=== PATIENT | female | born 1975 | race Two or more races ===

== ENCOUNTER 2021-07-13 20:07 | Emergency (ER) | payer OTHER ==
[2021-07-13 20:14] VITALS: BP 155/88; PULSE 70; TEMP 98.7; BMI 17.2
== END 2021-07-13 20:34 | disposition home or self-care (01) ==
LOC: FER 20:07
DX: Z48.02 Encounter for removal of sutures (principal)
CPT/HCPCS: 99281-25

== ENCOUNTER 2023-01-17 18:01 | Emergency (ER) | payer OTHER ==
[2023-01-17 18:08] VITALS: RESP 19; TEMP 98.5; BMI 16.2
[2023-01-17 19:46] LABS: BASO % 0.2 % (0-2.0); EOS % 1.1 % (0-4.5); HEMATOCRIT 45.1 % (32.4-45.2); HEMOGLOBIN 14.8 GM/dL (10.7-15.3); MCH 29.3 pg (25.7-33.7); MCHC 32.8 g/dl (32.0-36.0); MEAN CELL VOLUME 89.3 fl (80-96); MEAN PLT VOLUME 7.3 fl (7.5-11.1); MONO % 7.1 % (3.8-10.2); NEUT % 64.6 % (42.8-82.8); PLATELET COUNT 256 10^3/uL (134-434); RBC 5.06 M/mm3 (3.60-5.2); RDW 13.5 % (11.6-15.6); WHITE BLOOD COUNT 8.1 K/mm3 (4.0-10.0)
[2023-01-17 19:49] LABS: CALCIUM 9.2 mg/dL (8.5-10.1)
[2023-01-17 19:50] LABS: BLOOD UREA NITROGEN 10.9 mg/dL (7-18)
[2023-01-17 19:53] LABS: CREATININE 0.8 mg/dL (0.55-1.3)
[2023-01-17 20:26] VITALS: BP 122/78; PULSE 88
== END 2023-01-17 20:24 | disposition home or self-care (01) ==
LOC: JERFT 18:01
DX: S40.862A Insect bite (nonvenomous) of left upper arm, initial encounter (principal); W57.XXXA Bitten or stung by nonvenomous insect and other nonvenomous arthropods, initial encounter
CPT/HCPCS: 36415; 80048; 84443; 85025; 99283-25